=== PATIENT | male | born 1940 | race Two or more races ===

== ENCOUNTER 2017-04-30 07:59 | Day surgery (SDC) | payer MEDICARE, OTHER ==
--- NOTE | 2017-04-26 14:50 | Pre-Procedure Note/Attestation ---
Pre-Procedure Note/Attestation Complete Prior to Procedure Planned Procedure: right Procedure Narrative: 1. CATARACT EXTRACTION WITH PHACO AND PC IOL IMPLANTATION, RIGHT EYE. 2. LIMBAL RELAXING INCISION, RIGHT EYE. 3.MALYUGIN RING INSERTION, RIGHT EYE FOR FLOPPY IRIS SYNDROME. 4.COMPLEX CATARACT , RIGHT EYE Indications for Procedure Pre-Operative Diagnosis: 1. CATARACT (AGE RELATED NUCLEAR) ,RIGHT EYE. 2.ASTIGMATISM , RIGHT EYE. 3. FLOPPY IRIS SYNDROME,RIGHT EYE 4. COMPLEX CATARACT , RIGHT EYE. Attestation I attest that I discussed the nature of the procedure; its benefits; risks and complications; and alternatives (and the risks and benefits of such alternatives ), prior to the procedure, with the patient (or the patient's legal veterans service representative). I attest that, if there was a reasonable possibility of needing a blood transfusion, the patient (or the patient's legal veterans service representative) was given the [facility] standardized written summary, pursuant to the [place] Blood Safety Act ([place] Health and Safety Code # 1645, as amended). I attest that I re-evaluated the patient just prior to the surgery and that there has been no change in the patient's H&P, except as documented below: CALEB MOJICA Apr 26, 2017 14:50
[~2017-04-30] VITALS: Ht 170.2 cm; Wt 68.0 kg
[2017-04-30] VITALS (9 sets, daily range): BP systolic 135–162; BP diastolic 68–97
--- NOTE | 2017-04-30 07:08 | Anethesia Preoperative Eval ---
Anesthesia Pre-op PMH/ROS General Date of Evaluation: Apr 30, 2017 Time of Evaluation: 07:08 Anesthesiologist: nubia ASA Score: ASA 4 Mallampati Score Class I : Soft palate, uvula, fauces, pillars visible Class II: Soft palate, uvula, fauces visible Class III: Soft palate, base of uvula visible Class IV: Only hard plate visible Mallampati Classification: Class II Surgeon: ramone Diagnosis: cataract right eye Surgical Procedure: cataract extractiion w/ iol right eye Anesthesia History: none Social History: smoking - nonsmoker Allergies: Coded Allergies: No Known Allergies (Unverified , 04/26/17) Medications: see eMAR Past Medical History Cardiovascular: Reports: HTN, CAD, [place], other - cardiac stent Gastrointestinal/Genitourinary: Reports: other Endocrine: Reports: DM Anesthesia Pre-op Phys. Exam Physician Exam Last Vital Signs Date Time Temp Pulse Resp B/P (MAP) Pulse Ox O2 Delivery O2 Flow Rate FiO2 04/30/17 08:42 97.9 53 16 149/75 98 Room Air Constitutional: NAD Neurologic: CN 2-12 intact Cardiovascular: RRR Respiratory: CTA Gastrointestinal: S/NT/ND Airway Exam Mallampati Score: Class II MO: limited Neck: short TMD: 2fb ROM: limited Teeth: missing Anesthesia Pre-op A/P Risk Assessment & Plan Assessment: asa4 Plan: mac Status Change Before Surgery: No Pre-Antibiotics Drug: SHAKIR Hurst Apr 30, 2017 07:08
[~2017-04-30 07:59] MED LIST: acetaZOLAMIDE 125mg tab ORAL ONE
[2017-04-30] MEDS ORDERED: Vigamox Opth Soln 3ml ONE (08:37)
[2017-04-30] MEDS ORDERED: Phenylephrine 10% Opth Soln 5ml ONE (08:37)
[2017-04-30] MEDS ORDERED: Ketorolac Tromethamine Opth 5ml Soln ONE (08:37)
[2017-04-30] MEDS ORDERED: Tropicamide 1% Opth 15ml Soln ONE (08:38)
[2017-04-30] MEDS ORDERED: Akten 3.5% 1ml Btl ONE (08:38)
[2017-04-30] MEDS: Ketorolac Tromethamine Opth 5ml Soln RIGHT EYE SCH ×3 (08:49→09:21)
[2017-04-30] MEDS: Akten 3.5% 1ml Btl RIGHT EYE SCH ×3 (08:50→09:22)
[2017-04-30] MEDS: Phenylephrine 10% Opth Soln 5ml RIGHT EYE SCH ×3 (08:50→09:22)
[2017-04-30] MEDS: Vigamox Opth Soln 3ml RIGHT EYE SCH ×3 (08:50→09:22)
[2017-04-30] MEDS: Tropicamide 1% Opth 15ml Soln RIGHT EYE SCH ×3 (08:50→09:22)
[2017-04-30] MEDS ORDERED: CLOPIDOGREL75 MG ORAL (09:21)
[2017-04-30] MEDS ORDERED: CARVEDILOL25 MG ORAL (09:21)
[2017-04-30] MEDS ORDERED: ASPIR 8181 MG ORAL (09:21)
[2017-04-30] MEDS ORDERED: AMLODIPINE BESYL5 MG ORAL (09:21)
[2017-04-30] MEDS ORDERED: ATORVASTATIN CA40 MG ORAL (09:21)
[2017-04-30] MEDS ORDERED: GABAPENTIN300 MG ORAL (09:21)
[2017-04-30] MEDS ORDERED: NORCO 10/3251 EA ORAL (09:21)
[2017-04-30] MEDS ORDERED: GLIMEPIRIDE4 MG ORAL (09:21)
[2017-04-30] MEDS ORDERED: TAMSULOSIN HCL0.4 MG ORAL (09:21)
[2017-04-30] MEDS ORDERED: BSS 500ml btl ONE ×2 (09:55→12:31)
[2017-04-30] MEDS ORDERED: Dexamethasone 4mg/ml vial ONE (09:55)
[2017-04-30] MEDS ORDERED: Lidocaine 1% MPF 10mg/ml 5ml ONE (09:55)
[2017-04-30] MEDS ORDERED: EPINEPHrine 1mg/1ml Amp ONE (09:56)
[2017-04-30] MEDS ORDERED: Povidone-Iodine 5% opth solution ONE (09:56)
[2017-04-30] MEDS ORDERED: Sodium Hyaluronate 10 mg/ml 0.85ml ONE (09:56)
[2017-04-30] MEDS ORDERED: BSS 15ml BTL ONE (09:56)
[2017-04-30] MEDS ORDERED: Sodium Chloride 10ml vial INJ ONE (10:00)
[2017-04-30] MEDS ORDERED: LR 1000ml ONE (10:00)
[2017-04-30] MEDS ORDERED: Sterile Water Irrig 1000ml IRRIG ONE (10:00)
[2017-04-30] MEDS ORDERED: fentaNYL 100 mcg/2 mL IV ONE (10:00)
[2017-04-30] MEDS ORDERED: NS Irrig 1000ml ONE (10:00)
[2017-04-30] MEDS ORDERED: Midazolam 2mg/2ml Inj ONE (10:00)
[2017-04-30] MEDS ORDERED: LR 1000ml 1,000 ML IVLG SCH (10:39)
[2017-04-30] MEDS ORDERED: DiphenhydrAMINE 50mg/ml Inj IVP PRN (10:45)
[2017-04-30] MEDS ORDERED: Midazolam 2mg/2ml Inj IVP PRN (10:45)
[2017-04-30] MEDS ORDERED: fentaNYL 100 mcg/2 mL IV PRN (10:45)
[2017-04-30] MEDS ORDERED: Atropine Inj 1mg/10ml Syr IV PRN (10:45)
--- NOTE | 2017-04-30 11:09 | Discharge Summary ---
Discharge Summary Discharge Summary Discharge Summary DATE OF ADMISSION:04/30/2017 DATE OF DISCHARGE:04/30/2017 REASON FOR HOSPITALIZATION: Cataract right eye SURGERY PERFORMED: 1- Cataract extraction, right eye 2- LRI right eye CONDITION IN THE HOSPITAL:The patient tolerated the surgery without complications. DISCHARGE CONDITION: The patient was stable at discharge. DISCHARGE MEDICATIONS: 1. Vigamox eye drops one drop q.i.d, OD 2. Prednisolone one drop q.i.d, OD 3. Acular one drop qid, right eye POSTOPERATIVE ORDERS: The patient has to rest at home. No bending, No lifting, No watching Television tonight. POSTOPERATIVE FOLLOW UP: The patient will be followed in my office tomorrow morning at 7 o'clock. CALEB MOJICA Apr 30, 2017 11:09
--- NOTE | 2017-04-30 11:12 | Brief Operative Note ---
Immediate Post Operative Note Operative Note Chief Complaint: Blurry vision difficulty driving and reading, right eye Pre-op Diagnosis: 1. CATARACT (AGE RELATED NUCLEAR) ,RIGHT EYE. 2.ASTIGMATISM , RIGHT EYE. 3. FLOPPY IRIS SYNDROME,RIGHT EYE 4. COMPLEX CATARACT , RIGHT EYE. Procedure: 1- Cataract extraction with phaco and PC IOl implantation, right eye 2- LRI, right eye complex cataract removed 4- Malyugin ring inserted Surgeon: Caleb Leonard MD. Director Of Academic Support: None Additional Surgeons: None Anesthesiologist: Dr. rocha Anesthesia: MAC Specimen: none Complications: none Condition: stable Fluids: 500ml Estimated Blood Loss: none Drains: none Implant(s) used?: Yes - Monofocal PC IOL implanted in the right eye without complication CALEB LEONARD Apr 30, 2017 11:12
--- NOTE | 2017-04-30 12:47 | Immediate Post-Op Evaluation ---
Immediate Post-Op Evalulation Immediate Post-Op Evalulation Procedure: cataract extraction w/ iol right Date of Evaluation: Apr 30, 2017 Time of Evaluation: 11:13 IV Fluids: 150ml lr Blood Products: none Estimated Blood Loss: negligible Blood Pressure Systolic: 143 Blood Pressure Diastolic: 97 Pulse Rate: 66 Respiratory Rate: 18 O2 Sat by Pulse Oximetry: 97 Temperature (Fahrenheit): 97.0 Pain Score (1-10): 0 Nausea: No Vomiting: No Complications none Patient Status: awake, reacts, patent Hydration Status: adequate Drug: SHAKIR Hurst Apr 30, 2017 12:47
--- NOTE | 2017-04-30 12:49 | 48 Hour Post Anesthesia Eval ---
Post Anesthesia Evaluation Procedure: cataract extraction w/ iol right Date of Evaluation: Apr 30, 2017 Time of Evaluation: 11:15 Blood Pressure Systolic: 162 0: 70 Pulse Rate: 58 Respiratory Rate: 18 Temperature (Fahrenheit): 97.0 O2 Sat by Pulse Oximetry: 99 Airway: patent Nausea: No Vomiting: No Pain Intensity: 0 Hydration Status: adequate Cardiopulmonary Status: stable Mental Status/LOC: patient returned to baseline Post-Anesthesia Complications: none Follow-up care needed: N/A SHAKIR TAVERAS Apr 30, 2017 12:48
--- NOTE | 2017-05-01 17:00 | Operative Note - Dictated ---
DATE OF OPERATION: 04/30/2017 FACILITY: [facility]. SURGEON: Petr Leonard M.D. SPLUNK DASHBOARD DEVELOPER: None. ANESTHESIOLOGIST: Ebony Mitchell M.D. ANESTHESIA: Monitored anesthesia care (MAC). PREOPERATIVE DIAGNOSES: 1. Cataract, right eye. 2. Floppy iris syndrome. 3. Complex cataract. 4. Astigmatism. POSTOPERATIVE DIAGNOSES: 1. Cataract, right eye. 2. Floppy iris syndrome. 3. Complex cataract. 4. Astigmatism. SURGERY PERFORMED: 1. Cataract extraction with phacoemulsification and intraocular lens implantation in the right eye. 2. Insertion of Malyugin ring. 3. Complex cataract. 4. Limbal relaxing incision in the right eye. INDICATION FOR SURGERY: The patient is a 77-year-old gentleman with history of hypertension, coronary artery disease, valvular disease, diabetes mellitus type 2, and the patient also has BPH and taking Flomax for that as well. The patient was taking a lot of medications including Flomax, hydrochlorothiazide, Diovan, simvastatin, pain medication. He is not allergic to any medication. He was a smoker in the past, but now he is not a smoker. The patient is complaining of blurry vision in the right eye. The patient has had diabetic retinopathy and is status post PRP in the right eye. On examination of the right eye, the cornea is clear. Anterior chamber is clean and quiet, but is very shallow. Pupillary reflex is normal. There is 5+ nuclear sclerosis and 2+ cortical cataract. 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 To improve his vision in the right eye, the cataract has to be removed and posterior chamber intraocular lens has to be implanted. The pupillary reflex is normal. There is no RAPD. INFORMED CONSENT: The nature of the surgery, risks, benefits, alternatives, and potential complications were explained in detail to the patient in the language, Farsi. The potential complications were including but not limited to bleeding, infection, posterior capsular rupture, lens subluxation, flat anterior chamber, iris prolapse, uveitis, corneal edema, macular edema, endophthalmitis, retinal detachment, loss of vision, and even loss of the eye were all explained in detail to the patient in his language, Farsi. The patient voiced understanding and accepted all the complications. The alternatives including accommodating lens, multifocal lens, toric lens, and conventional cataract surgery with limbal relaxing incision for astigmatism all explained in detail to the patient in his language, Farsi. The patient voiced understanding. The patient elected to have conventional cataract surgery with limbal relaxing incision for treatment of astigmatism. Then he signed the consent form which is in the chart. DESCRIPTION OF SURGERY AND FINDINGS: Following that, the patient was taken to the operation room in stable condition. Lidocaine gel, Akten 3.5% were applied to the conjunctiva of the right eye. IV sedation was given by the anesthesiologist, Dr. Mitchell. After adequate anesthesia and sedation had been achieved, the right eye was prepped and draped in a sterile fashion for intraocular surgery. Following that, a speculum was placed in the right eye. Before the patient was taken to the operation room, the eye was marked at 180 and 90 meridian. In the operation room, using a corneal marker and a marking pen, the steep meridian of the cornea was marked. Following that, using a evelina knife with a 600-micron blade, two parallel incisions were placed on the steep meridian of the cornea to treat the astigmatism. Following that, using a SuperSharp knife, a clear corneal side port was created. A 1% lidocaine without preservative (MPF) was injected into the anterior chamber. Viscoelastic agent, Healon, was injected into the anterior chamber. Following that, using a 2.8 mm keratome, clear corneal temporal keratotomy was created. Viscoelastic agent again was injected into the anterior chamber. VisionBlue was injected under the viscoelastic agent. Following that, again clear fresh viscoelastic agent was injected into the anterior chamber. Following that, the anterior capsulotomy in the fashion of capsulorrhexis was performed under the viscoelastic agent beautifully. Following that, whole viscoelastic agent was removed from the anterior chamber. Using the balanced salt solution, hydrodissection and hydrodelineation was performed and the nucleus was freed. Following that, clear fresh viscoelastic agent, Healon, was injected into the anterior chamber to protect the endothelium of the cornea. Following that, using the phacoemulsification machine in the fashion of horizontal chop, the nucleus was removed in toto. Following that, with the irrigation-aspiration unit, cortical material was removed from the capsular bag and the capsular bag was polished. Following that, the capsular bag was filled with viscoelastic agent, Healon. Following that, a +22 diopters PCB00 foldable IOL with serial number [id number] was injected into the capsular bag. Using a Sinskey hook, the lens was manipulated and put in the proper position. Following that, the viscoelastic agent was removed from the anterior and posterior part of the lens and the anterior chamber was filled with balanced salt solution. The wound was hydrated with balanced salt solution. The wound was checked for leakage. There was no leakage. Vigamox eyedrops were applied to the conjunctiva of the right eye. The patient tolerated the surgery without complications. At the end of the surgery, the eye was patched with a clear sterile fenestrated shield. Following that, the patient was transferred to the recovery room. In the recovery room, 125 mg Diamox was given by mouth stat. Postoperative orders and directions were given to the patient. The patient will be discharged home upon stabilization. The patient will be followed in my office tomorrow morning at 7 o'clock. Petr Leonard M.D. DR: YUN JOB#: [id number] CC:
== END 2017-04-30 12:10 | disposition home or self-care (01) ==
LOC: SUR 07:59
DX: H25.11 Age-related nuclear cataract, right eye (principal); H25.011 Cortical age-related cataract, right eye; H21.81 Floppy iris syndrome; H52.201 Unspecified astigmatism, right eye; I11.9 Hypertensive heart disease without heart failure; E11.9 Type 2 diabetes mellitus without complications; Z87.891 Personal history of nicotine dependence; E11.319 Type 2 diabetes mellitus with unspecified diabetic retinopathy without macular edema; I25.2 Old myocardial infarction; Z95.5 Presence of coronary angioplasty implant and graft
CPT/HCPCS: 65772; 66982; 82962; J0171; J1100; J2250; J3010; J7120; V2632; 94003; 94150